=== PATIENT | female | born 1965 | race Hispanic/Latino ===

== ENCOUNTER 2022-03-06 19:03 | Inpatient (IN) | payer SELFPAY ==
[~2022-03-06] VITALS: Ht 152.4 cm; Wt 90.7 kg
[2022-03-06] MEDS: SODIUM CHLORIDE 0.9% 1000ML 1,000 ML IV SCH (01:00)
[2022-03-06 19:45] LABS: ALBUMIN/GLOBULIN RATIO 1.1 (0.8-2.0); ANION GAP 18.1 mmol/L (8-16); CALCIUM 9.4 mg/dL (8.4-10.2); CLARITY,URINE SL CLOUDY (CLEAR); COLOR,URINE YELLOW (YELLOW); CREATININE, SERUM 0.8 mg/dL (0.57-1.11); LEUKOCYTE ESTERASE ,URINE TRACE (NEGATIVE); NITRITE,URINE NEGATIVE (NEGATIVE); POTASSIUM 4.1 mmol/L (3.5-5.1); PROTEIN,URINE DIPSTICK NEGATIVE (NEGATIVE)
[2022-03-06 19:46] LABS: KETONES,URINE NEGATIVE (NEGATIVE); URINE UROBILINOGEN 0.2 mg/dL (0.2 - 1)
[2022-03-06 19:46] LABS: BASOPHILS # (AUTO) 0.1 (0.0-0.1); BASOPHILS % 0.6 % (0.0-1.0); EOSINOPHILS % 0.1 % (0.0-6.0); HEMATOCRIT 42.5 % (34.2-44.1); HEMOGLOBIN 13.4 g/dL (12.0-16.0); LYMPHOCYTES # (AUTO) 1.3 (1.0-3.2); LYMPHOCYTES % 11.2 % (18.0-39.1); MEAN CORPUSCULAR HEMOGLOBIN 29.2 pg (28-32); MEAN CORPUSCULAR HGB CONC 31.5 g/dL (31-35); MEAN CORPUSCULAR VOLUME 92.6 fL (81-99); MONOCYTES # (AUTO) 0.5 (0.2-0.8); NEUTROPHILS # (AUTO) 9.8 (2.1-6.9); NEUTROPHILS % 83.8 % (38.7-80.0); PLATELET COUNT 272 x10e3/uL (140-360); RED BLOOD COUNT 4.59 x10e6/uL (3.6-5.1); RED CELL DISTRIBUTION WIDTH 12.9 % (11.7-14.4)
[2022-03-06 19:53] LABS: AMORPHOUS SEDIMENT,URINE MANY (FEW); BACTERIA,URINE FEW /HPF; EPITHELIAL CELLS,URINE MODERATE /LPF; RBC,URINE 0-5 /HPF (0-5); WBC,URINE (MAN) 0-5 /HPF (0-5)
[2022-03-06] MEDS ORDERED: ONDANSETRON HCL INJ 2MG/ML 2ML 2 MG/ML VIAL IV STA (20:19)
[2022-03-06] MEDS ORDERED: ONDANSETRON HCL INJ 2MG/ML 2ML 2 MG/ML VIAL ONE (20:30)
[2022-03-06] MEDS ORDERED: FENTANYL CITRATE/PF 100MCG/2 ML INJ ONE (20:30)
[2022-03-06] MEDS ORDERED: FENTANYL CITRATE/PF 100MCG/2 ML INJ IV ONE (20:30)
[2022-03-06] MEDS ORDERED: IOPAMIDOL 370 MG/ML 100 ML INFUS..BTL INJ ONE (20:50)
[2022-03-07] VITALS (7 sets, daily range): BP systolic 103–128; BP diastolic 60–72
[2022-03-07] MEDS: Morphine 4mg INJECTION 4 MG/ML INJ IV PRN ×2 (03:00→15:33)
[2022-03-07] MEDS: ONDANSETRON HCL INJ 2MG/ML 2ML 2 MG/ML VIAL IV PRN ×2 (03:00→15:33)
[2022-03-07] MEDS ORDERED: LOSARTAN POTASS25 MG PO (03:45)
[2022-03-07] MEDS ORDERED: LORAZEPAM INJ 2 MG/ML VIAL IV ONE ×2 (05:45→09:00)
[2022-03-07] MEDS: SODIUM CHLORIDE 0.9% 1000ML 1,000 ML IV SCH ×2 (12:18→21:01)
[2022-03-07 15:05] LABS: BASOPHILS # (AUTO) 0.1 (0.0-0.1); BASOPHILS % 0.9 % (0.0-1.0); EOSINOPHILS # (AUTO) 0.1 (0.0-0.4); EOSINOPHILS % 1.6 % (0.0-6.0); HEMATOCRIT 41.3 % (34.2-44.1); HEMOGLOBIN 12.6 g/dL (12.0-16.0); LYMPHOCYTES # (AUTO) 1.1 (1.0-3.2); LYMPHOCYTES % 19.9 % (18.0-39.1); MEAN CORPUSCULAR HEMOGLOBIN 28.6 pg (28-32); MEAN CORPUSCULAR HGB CONC 30.5 g/dL (31-35); MEAN CORPUSCULAR VOLUME 93.9 fL (81-99); MONOCYTES # (AUTO) 0.5 (0.2-0.8); MONOCYTES % 8.1 % (4.4-11.3); NEUTROPHILS # (AUTO) 3.8 (2.1-6.9); NEUTROPHILS % 69.3 % (38.7-80.0); PLATELET COUNT 257 x10e3/uL (140-360); RED CELL DISTRIBUTION WIDTH 13.2 % (11.7-14.4)
[2022-03-07 15:30] LABS: ALBUMIN 3.4 g/dL (3.5-5.0); ALBUMIN/GLOBULIN RATIO 1.1 (0.8-2.0); ANION GAP 14.4 mmol/L (8-16); CALCIUM 8.7 mg/dL (8.4-10.2); CREATININE, SERUM 0.66 mg/dL (0.57-1.11); POTASSIUM 3.4 mmol/L (3.5-5.1)
[2022-03-08] VITALS (8 sets, daily range): BP systolic 108–124; BP diastolic 64–85
[2022-03-08] MEDS ORDERED: POLYETHYLENE GLYCOL 3350 17 GM PACK PO PRN
[2022-03-08] MEDS ORDERED: ACETAMINOPHEN 325 MG TAB PO PRN
[2022-03-08] MEDS ORDERED: HYDRALAZINE HCL 20 MG/ML VIAL IV PRN
[2022-03-08] MEDS ORDERED: TEMAZEPAM 7.5 MG CAP PO PRN
[2022-03-08 06:19] LABS: BASOPHILS # (AUTO) 0.1 (0.0-0.1); BASOPHILS % 1.1 % (0.0-1.0); EOSINOPHILS # (AUTO) 0.3 (0.0-0.4); EOSINOPHILS % 5.4 % (0.0-6.0); HEMATOCRIT 38.8 % (34.2-44.1); HEMOGLOBIN 12.7 g/dL (12.0-16.0); LYMPHOCYTES # (AUTO) 1.3 (1.0-3.2); LYMPHOCYTES % 24.1 % (18.0-39.1); MEAN CORPUSCULAR HEMOGLOBIN 29.5 pg (28-32); MEAN CORPUSCULAR HGB CONC 32.7 g/dL (31-35); MONOCYTES # (AUTO) 0.4 (0.2-0.8); MONOCYTES % 7.2 % (4.4-11.3); NEUTROPHILS # (AUTO) 3.5 (2.1-6.9); PLATELET COUNT 222 x10e3/uL (140-360); RED BLOOD COUNT 4.31 x10e6/uL (3.6-5.1); RED CELL DISTRIBUTION WIDTH 13.6 % (11.7-14.4)
[2022-03-08 07:02] LABS: ALBUMIN 3.2 g/dL (3.5-5.0); ANION GAP 10.7 mmol/L (8-16); CALCIUM 8.5 mg/dL (8.4-10.2); CREATININE, SERUM 0.68 mg/dL (0.57-1.11); POTASSIUM 3.7 mmol/L (3.5-5.1)
[2022-03-08 07:25] LABS: CHOL/HDL RATIO 3.5 (3.0-3.6); PHOSPHORUS 3.1 MG/DL (2.3-4.7)
[2022-03-08 07:47] LABS: THYROID STIMULATING HORMONE 2.896 uIU/mL (0.350-4.940)
[2022-03-08] MEDS: FAMOTIDINE 20 MG TAB PO SCH ×2 (08:31→17:44)
[2022-03-08] MEDS: DOCUSATE SODIUM 100 MG CAP PO SCH ×2 (08:32→17:44)
[2022-03-08] MEDS: SODIUM CHLORIDE 0.9% 1000ML 1,000 ML IV SCH ×2 (10:01→17:44)
[2022-03-08] MEDS ORDERED: LORAZEPAM INJ 2 MG/ML VIAL IV ONE (11:15)
[2022-03-09] VITALS (8 sets, daily range): BP systolic 106–127; BP diastolic 62–78
[2022-03-09] MEDS: SODIUM CHLORIDE 0.9% 1000ML 1,000 ML IV SCH ×3 (00:03→21:09)
[2022-03-09] MEDS: DOCUSATE SODIUM 100 MG CAP PO SCH ×2 (09:00→17:00)
[2022-03-09] MEDS: FAMOTIDINE 20 MG TAB PO SCH ×2 (09:49→17:02)
[2022-03-10] VITALS: BP 112/71
[2022-03-10 04:50] VITALS: BP 108/64
[2022-03-10] MEDS: SODIUM CHLORIDE 0.9% 1000ML 1,000 ML IV SCH (05:06)
[2022-03-10 05:53] LABS: BASOPHILS # (AUTO) 0.1 (0.0-0.1); BASOPHILS % 0.9 % (0.0-1.0); EOSINOPHILS # (AUTO) 0.4 (0.0-0.4); EOSINOPHILS % 6.1 % (0.0-6.0); HEMATOCRIT 39.5 % (34.2-44.1); HEMOGLOBIN 12.2 g/dL (12.0-16.0); LYMPHOCYTES # (AUTO) 1.6 (1.0-3.2); LYMPHOCYTES % 27.9 % (18.0-39.1); MEAN CORPUSCULAR HEMOGLOBIN 28.5 pg (28-32); MEAN CORPUSCULAR HGB CONC 30.9 g/dL (31-35); MEAN CORPUSCULAR VOLUME 92.3 fL (81-99); MONOCYTES # (AUTO) 0.4 (0.2-0.8); MONOCYTES % 7.5 % (4.4-11.3); NEUTROPHILS # (AUTO) 3.3 (2.1-6.9); NEUTROPHILS % 57.4 % (38.7-80.0); PLATELET COUNT 228 x10e3/uL (140-360); RED BLOOD COUNT 4.28 x10e6/uL (3.6-5.1); RED CELL DISTRIBUTION WIDTH 13.4 % (11.7-14.4)
[2022-03-10 06:26] LABS: ALBUMIN 3.1 g/dL (3.5-5.0); ANION GAP 11.8 mmol/L (8-16); CALCIUM 8.7 mg/dL (8.4-10.2); CREATININE, SERUM 0.64 mg/dL (0.57-1.11); POTASSIUM 3.8 mmol/L (3.5-5.1)
[2022-03-10 08:00] VITALS: BP 122/79
[2022-03-10 08:19] VITALS: BP 122/79
[2022-03-10] MEDS: FAMOTIDINE 20 MG TAB PO SCH (08:37)
[2022-03-10] MEDS: DOCUSATE SODIUM 100 MG CAP PO SCH (08:37)
== END 2022-03-10 10:35 | disposition home or self-care (01) | DRG 442 ==
LOC: ER 19:08 → ERHOLD 22:58 → MED/SURG3 23:32
PROVIDERS: ADMIT Internal Medicine; ATTEND Internal Medicine
DX: K76.89 Other specified diseases of liver (principal); N39.0 Urinary tract infection, site not specified; R74.01 Elevation of levels of liver transaminase levels; E87.6 Hypokalemia; N20.0 Calculus of kidney; I10 Essential (primary) hypertension; Z20.822 Contact with and (suspected) exposure to COVID-19
CPT/HCPCS: 36415; 74177; 74181; 80053; 80061; 81001; 83036; 83690; 83735; 84100; 84443; 85025; 86039; 86255; 96361; 99252; 99284; J2060; J2270; J2405; J2543; J3010; J7030; Q9967